=== PATIENT | female | born 1945 | race Caucasian/White ===

== ENCOUNTER 2017-11-30 11:59 | Day surgery (SDC) | payer MEDICARE, BC ==
[~2017-11-30 11:59] MED LIST: NEUR300C PO; PRAV20 PO; TOPA25TA8 PO
[2017-11-30] MEDS ORDERED: BIOTCAP PO (12:42)
[2017-11-30] MEDS ORDERED: PLAV75TA29 PO (12:42)
[2017-11-30] MEDS ORDERED: ASPI1TAB57 PO (12:42)
[2017-11-30] MEDS ORDERED: TRAZ50TA12 PO (12:42)
[2017-11-30] MEDS ORDERED: PRAV40TA2 PO (12:42)
[2017-11-30] MEDS ORDERED: GABA300C5 PO (12:42)
[2017-11-30] MEDS ORDERED: ALPR.25 PO (12:42)
[2017-11-30] MEDS ORDERED: MIDAZOLAM HCL 5 MG/ML VIAL (1 ML) ONE (12:58)
[2017-11-30] MEDS ORDERED: NS 1000 ML IV SCH (13:00)
[2017-11-30] MEDS ORDERED: MUPIROCIN 2% OINT 1 APPLIC/GM SYR NASAL SCH (13:00)
[2017-11-30] MEDS ORDERED: ceFAZolin 2 GM PREMIX 50 ML IV SCH (13:00)
[2017-11-30] MEDS ORDERED: CHLORHEXIDINE GLUCONATE 2 % 1 PACK (2 CLOTHS) TOPICAL SCH (13:00)
[2017-11-30] MEDS ORDERED: POVIDONE IODINE 5% (ANTISEPSIS KIT) 4 APPLICATIONS EACH NARE SCH (13:00)
--- NOTE | 2017-11-30 14:20 | MR ---
cc: Kyleigh Thomas MD DATE: 11/30/2017 INDICATIONS FOR SURGERY: Cerebrovascular accident, evaluation for atrial fibrillation. PROCEDURES PERFORMED: Placement of a Medtronic Reveal LINQ MRI compatible loop monitor. ACCESS SITE: Left subclavicular area. EQUIPMENT USED: Medtronic Reveal LINQ, model LNQ11, MRI compatible monitor, serial number [id number]. COMPLICATIONS: None. BLOOD LOSS: Less than 10 mL. MEDICATIONS: None. PROCEDURE: After the patient was prepped and draped in zhao usual sterile manner, local anesthesia was applied. Medtronic Reveal LINQ MRI compatible monitor was placed without difficulty. R-wave was 0.27 millivolts. DIAGNOSES: Successful placement of Medtronic Reveal LINQ MRI compatible loop monitor. DISPOSITION: Ms. Kimble will be discharged home later today. We will see her back for a wound check in our office within 2 weeks. We will initiate long-term monitoring of her device. Kyleigh Thomas MD OQ/KD , 02:03 PM , 02:18 PM MTDDisha
== END 2017-11-30 13:36 | disposition home or self-care (01) ==
LOC: HDOC 11:59 → HDIC 12:01 → HDOC 13:36
PROVIDERS: ATTEND Internal Medicine Interventional Cardiology
DX: I63.9 Cerebral infarction, unspecified (principal); R00.1 Bradycardia, unspecified; R07.89 Other chest pain; I34.0 Nonrheumatic mitral (valve) insufficiency; I36.1 Nonrheumatic tricuspid (valve) insufficiency; E78.5 Hyperlipidemia, unspecified
CPT/HCPCS: 33282; C1764; J0690; J2250

== ENCOUNTER → 2018-03-01 | Day surgery (SDC) | payer MEDICARE, OTHER ==
[~2018-03-01] MED LIST changes: +ALPR.25 PO; +ASPI1TAB57 PO; +ATROPINE SULFATE 1% OPHT SOLN 2 ML BTL ONE; +BIOTCAP PO; +DEXAMETHASONE SOD PHOS 4 MG/ML VIAL ONE; +EPINEPHrine HCL (1:1000) 1 MG/ML VIAL ONE; +FLURBIPROFEN 0.03% OPHT SOLN 2.5 ML BTL ONE; +GABA300C5 PO; +HYALURONIDASE/LIDOCAINE/BUPIVACAINE 5 ML SYR ONE; +NEOMYCIN/POLYMYXIN/DEXAMETHASONE OPTH OINT 3.5 GM TUBE ONE; -NEUR300C PO; +ONDANSETRON HCL 4 MG/2 ML VIAL IV PUSH ONE; +PHENYLEPHRINE HCL 2.5 % OPTH SOLN 15 ML BTL ONE; +PLAV75TA29 PO; -PRAV20 PO; +PRAV40TA2 PO; +PROPOFOL 100 MG/10 ML INJ IV ONE; +TETRACAINE 0.5% OPTH SOLN 15 ML BTL ONE; -TOPA25TA8 PO; +TRAZ50TA12 PO; +TRIAMCINOLONE ACETONIDE 40 MG/ML VIAL ONE; +TROPICAMIDE 1% OPHT SOLN 15 ML BTL ONE; +ceFAZolin INJ 1,000 MG VIAL ONE
--- NOTE | 2018-03-05 11:05 | MP ---
cc: Benja Rodriguez MD DATE OF OPERATION: 03/01/2018 PREOPERATIVE DIAGNOSIS: Macular hole, left eye. POSTOPERATIVE DIAGNOSIS: Macular hole, left eye. PROCEDURE PERFORMED: Pars plana vitrectomy, membrane peeling, gas fluid exchange, all left eye. ANESTHESIA: MAC. SURGEON: Benja Rodriguez MD COMPLICATIONS: None. PROCEDURE: After informed consent was obtained and the eye was anesthetized with peribulbar anesthesia, she was brought to the operating room and the left eye was prepared and draped in the usual sterile fashion. A wire lid speculum was placed in the patient's left eye. 23 gauge vitrectomy cannulas were then placed in the lower temporal, supratemporal and supranasal quadrants 3 millimeters posterior to the corneoscleral limbus. An infusion cannula was placed lower temporally. Core vitrectomy was then performed using the vitreous cutter. The vitrectomy was carried out as far as possible to the vitreous base. Posteriorly the internal limiting membrane was peeled off from around the macular hole using intraocular forceps. Careful indirect ophthalmoscopy with scleral depression was then performed and no peripheral retinal breaks were noted. A complete air fluid exchange was then performed. The air was then exchanged for 16% C3F8. The three vitrectomy cannulas were then removed. Subconjunctival injections of dexamethasone and Ancef were placed. An atropine drop, Maxitrol ointment and a patch and shield were then applied. The patient tolerated the procedure well. There were no complications. She will remain face down over the next 4 days. [facility] will [facility]. Benja Rodriguez MD TAB/TL , 09:08 AM , 11:03 AM
== END | disposition home or self-care (01) ==
LOC: ESDC 11:21
PROVIDERS: ATTEND Ophthalmology Retina Specialist
DX: H35.342 Macular cyst, hole, or pseudohole, left eye (principal)
CPT/HCPCS: 00145; 67042; J0171; J0690; J1100; J2405; J3010; J3301